=== PATIENT | female | born 1950 | race Caucasian/White ===

== ENCOUNTER 2017-02-11 21:04 | Emergency (ER) | payer BC ==
[2017-02-11] MEDS ORDERED: metroNIDAZOLE 250 MG TAB ONE (21:47)
== END 2017-02-11 22:10 | disposition home or self-care (01) ==
LOC: BURERS 21:04
DX: K57.92 Diverticulitis of intestine, part unspecified, without perforation or abscess without bleeding (principal); F17.210 Nicotine dependence, cigarettes, uncomplicated; Z86.73 Personal history of transient ischemic attack (TIA), and cerebral infarction without residual deficits
CPT/HCPCS: 99283

== ENCOUNTER 2017-03-29 16:32 | Outpatient (CLI) | payer BC ==
[2017-03-29 16:43] LABS: #Basophils 0.1 thou/uL (0.0-0.2); #Eosinphils 0.1 thou/uL (0.0-0.7); #Lymphocytes 3.2 thou/uL (1.20-3.40); #Monocytes 0.5 thou/uL (0.11-0.59); #Neutrophils 3.9 thou/uL (1.40-6.50); %Basophils 1.6 % (0.0-1.0); %Eosinophils 1.4 % (0.0-10.0); %Monocytes 6.3 % (0.0-10.0); %Neutrophils 49.7 % (42.0-75.0); Hemoglobin 15.7 g/dL (12.0-16.0); Mean Corpuscular HGB CONC 32.2 g/dL (32.0-36.0); Mean Corpuscular Hemoglobin 29.4 pg (27.0-31.0); Mean Corpuscular Volume 91.4 fl (81.0-99.0); Mean Platelet Volume 5.5 fL (7.4-10.4); Platelet Count 303 thou/uL (130-400); RBC Distribution Width 13.5 % (11.5-14.5); Red Blood Cell (RBC) Count 5.33 mill/uL (4.20-5.40); White Blood Cell (WBC) Count 7.9 thou/uL (4.8-10.8)
[2017-03-29 17:46] LABS: ALT (SGPT) 14 U/L (8-55); AST (SGOT) 16 U/L (5-34); Albumin 4.3 g/dL (3.4-4.8); Alkaline Phosphatase 100 U/L (40-150); Anion Gap 15 mmol/L (10-20); BUN (Urea Nitrogen) 10 mg/dL (9.8-20.1); Bilirubin, Total 0.5 mg/dL (0.2-1.2); Calc. Creatinine Clearance 0 mL/min (70-130); Calcium 10.1 mg/dL (7.8-10.44); Carbon Dioxide 26 mmol/L (23-31); Chloride 105 mmol/L (98-107); Cholesterol 225 mg/dl (< 200 Desired); Estimated GFR-MDRD 83; Globulin 2.7 g/dL (2.4-3.5); Glucose 99 mg/dL (80-115); HDL Cholesterol 45 mg/dL (>60 Neg Risk); LDL Cholesterol, Calculated 156 mg/dL; Potassium 5.4 mmol/L (3.5-5.1); Sodium 141 mmol/L (136-145); Triglycerides 122 mg/dL (Less than 150)
== END 2017-03-29 16:33 | disposition home or self-care (01) ==
LOC: HPCALD 16:32
PROVIDERS: ATTEND Family Medicine
DX: I49.9 Cardiac arrhythmia, unspecified (principal); E78.5 Hyperlipidemia, unspecified
CPT/HCPCS: 80053; 80061; 84443; 85025

== ENCOUNTER 2017-10-27 08:30 | Outpatient (CLI) | payer BC ==
--- NOTE | 2017-10-27 15:53 | CT ---
CT LUMBAR SPINE 10/27/[address] of the lumbar spine was performed. Axial slices were acquired then coronal and sagittal rec onstructions were done. No fracture, dislocation, or acute bony change was seen. No disc herniations were noted. There is no sign of central canal or foraminal stenosis. No cause for the patient's sciatica was appreciated. The re are the beginnings of some mild degenerative change in the facet joints at L5-S1, but they are not substantial. There are several incidental findings on this study that are correlated with an old CT abdomen and pe lvis dated 03/05/15. There is a large parapelvic cyst in the left kidney measuring about 6.5 cm in size . This has not changed. Some scattered cysts are seen in the visible portions of the liver, not a new finding. A finding better seen on today's study is a 2.8 cm low density left adrenal mass. The CT nu mbers are mildly negative, around -2 units, very consistent with an adenoma. It has not changed over time. Small amounts of calcification are seen in the aorta but they are relatively minor. A periphera l cortical in the right kidney is most likely a cyst and measures 1.1 cm in size. It has not changed over the interval. IMPRESSION: 1. No acute lumbar findings to explain the patient's pain. Minimal facet degenerative change at L5-S1 which is not very impressive. 2. Parapelvic cysts in the left kidney, one of which is quite large but unchanged from 2015. Pro bable peripheral cysts in the right kidney which is not changed either. There is no sign of renal obs truction. 3. Hepatic cysts, longstanding. 4. 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 POS: HOME
--- NOTE | 2017-10-27 16:13 | CT ---
CT OF THE NECK SOFT TISSUES WITH CONTRAST: DATE: 10/27/17. FINDINGS: Spiral CT of the neck was done for evaluation of a palpable right neck mass. The patient reports she noticed it 1 year ago and it changes in size at times. Axial slices were acquired after giving IV c ontrast. Coronal and sagittal reconstructions were done afterwards. There is a cystic mass that appears to be in the parotid gland with peripheral enhancement. It measu res 1.5 cm wide. It correlates with the palpable abnormality. Looking back at a 2015 CT of the cerv ical spine scan which was done without contrast, this area blended in with the sternocleidomastoid an d was isodense to it, so not able to be performed as separate from it. I believe it was probably pre sent then and measured about 1 cm in size. 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 These are common in the parotid glands and in this age group and often have peripheral enhancement such as this. A lack of dramatic growth over time also mitigates towards a benign process such as t his. Other lymphoepithelial cysts are possible. It would probably be prudent to duo an ENT referral to determine if anything further need be done. Chronic sinusitis is present involving the ethmoid sinuses bilaterally and prominently the left maxil tia sinus. There may be a trace of mucosal thickening in the right maxillary sinus. Some nonspecif ic cervical adenopathy is seen bilaterally, no more so on one side than the other. Incidentally seen on the study were extensive degenerative changes of the cervical spine. IMPRESSION: 1. Palpable abnormality that correlates with a 1.5 cm cystic parotid mass with peripheral enhancemen t. 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 ENT referral is recomme nded. 2. Sinusitis, predominantly involving the ethmoid and left maxillary sinuses. 3. Other minor findings listed above. POS: HOME
== END 2017-10-27 08:31 | disposition home or self-care (01) ==
LOC: BURCT 08:30
PROVIDERS: ATTEND Family Medicine
DX: Z01.812 Encounter for preprocedural laboratory examination (principal); R22.1 Localized swelling, mass and lump, neck; M54.31 Sciatica, right side; J32.2 Chronic ethmoidal sinusitis; J32.0 Chronic maxillary sinusitis; M47.897 Other spondylosis, lumbosacral region; N28.1 Cyst of kidney, acquired; K76.89 Other specified diseases of liver; E27.9 Disorder of adrenal gland, unspecified
CPT/HCPCS: 36415; 70491; 72131; 82565

== ENCOUNTER 2022-07-07 14:41 | Emergency (ER) | payer BC ==
[~2022-07-07 14:41] MED LIST: Iopamidol 370 76% 100 ML VIAL ONE; Ketorolac Tromethamine 30 MG/ML VIAL ONE
[2022-07-07 15:06] LABS: #Basophils 0.1 thou/uL (0.0-0.2); #Eosinphils 0.2 thou/uL (0.0-0.7); #Lymphocytes 2.9 thou/uL (1.20-3.40); #Monocytes 0.5 thou/uL (0.11-0.59); #Neutrophils 3.8 thou/uL (1.40-6.50); %Basophils 1.5 % (0.0-1.0); %Eosinophils 2.4 % (0.0-10.0); %Lymphocytes 38.2 % (21.0-51.0); %Neutrophils 50.9 % (42.0-75.0); Hemoglobin 15.6 g/dL (12.0-16.0); Mean Corpuscular HGB CONC 32.8 g/dL (32.0-36.0); Mean Corpuscular Hemoglobin 29.7 pg (27.0-31.0); Mean Corpuscular Volume 90.6 fl (78.0-98.0); Mean Platelet Volume 6.1 fL (7.4-10.4); Platelet Count 350 10x3/uL (130-400); RBC Distribution Width 13.8 % (11.5-14.5); Red Blood Cell (RBC) Count 5.26 mill/uL (4.20-5.40); White Blood Cell (WBC) Count 7.5 10x3/uL (4.8-10.8)
[2022-07-07 15:24] LABS: ALT (SGPT) 10 U/L (8-55); AST (SGOT) 14 U/L (5-34); Albumin 4.2 g/dL (3.4-4.8); Alkaline Phosphatase 107 U/L (40-110); Anion Gap 14 mmol/L (10-20); BUN (Urea Nitrogen) 16 mg/dL (9.8-20.1); Bilirubin, Total 0.3 mg/dL (0.2-1.2); Calc. Creatinine Clearance 0 mL/min (70-130); Calcium 10.2 mg/dL (7.8-10.44); Carbon Dioxide 27 mmol/L (23-31); Chloride 105 mmol/L (98-107); Estimated GFR 56; Globulin 3.2 g/dL (2.4-3.5); Glucose 119 mg/dL (80-115); Lipase 45 U/L (8-78); Magnesium 1.8 mg/dL (1.6-2.6); Potassium 3.8 mmol/L (3.5-5.1); Protein, Total 7.4 g/dL (5.8-8.1); Sodium 142 mmol/L (136-145)
[2022-07-07] MEDS ORDERED: HYDROmorphone 0.5 MG/0.5 ML SYRINGE ONE (15:44)
== END 2022-07-07 17:53 | disposition home or self-care (01) ==
LOC: BURERS 14:41
DX: K43.9 Ventral hernia without obstruction or gangrene (principal); F17.210 Nicotine dependence, cigarettes, uncomplicated
CPT/HCPCS: 74177; 80053; 83605; 83690; 83735; 85025; 96374; 96375; J1170; J1885; Q9967

== ENCOUNTER 2022-10-31 17:57 | Emergency (ER) | payer BC ==
[2022-10-31] MEDS ORDERED: diphenhydrAMINE 25 MG CAP ONE (18:20)
[2022-10-31] MEDS ORDERED: Dexamethasone 10 MG/ML VIAL ONE (18:20)
== END 2022-10-31 18:38 | disposition home or self-care (01) ==
LOC: BURERS 17:57
DX: L50.9 Urticaria, unspecified (principal); T63.391A Toxic effect of venom of other spider, accidental (unintentional), initial encounter; F17.210 Nicotine dependence, cigarettes, uncomplicated
CPT/HCPCS: 99282; J1100

== ENCOUNTER 2023-04-16 19:30 | Emergency (ER) | payer BC ==
[2023-04-16 20:16] LABS: #Basophils 0.1 thou/uL (0.0-0.2); #Eosinphils 0.1 thou/uL (0.0-0.7); #Lymphocytes 1.8 thou/uL (1.20-3.40); #Monocytes 0.8 thou/uL (0.11-0.59); #Neutrophils 7.9 thou/uL (1.40-6.50); %Basophils 1.1 % (0.0-1.0); %Eosinophils 1.1 % (0.0-10.0); %Lymphocytes 16.9 % (21.0-51.0); %Neutrophils 73.8 % (42.0-75.0); Hemoglobin 14.7 g/dL (12.0-16.0); Mean Corpuscular HGB CONC 32.8 g/dL (32.0-36.0); Mean Corpuscular Hemoglobin 29.4 pg (27.0-31.0); Mean Corpuscular Volume 89.6 fl (78.0-98.0); Mean Platelet Volume 5.9 fL (7.4-10.4); Platelet Count 396 10x3/uL (130-400); RBC Distribution Width 12.8 % (11.5-14.5); Red Blood Cell (RBC) Count 5.02 mill/uL (4.20-5.40); White Blood Cell (WBC) Count 10.6 10x3/uL (4.8-10.8)
[2023-04-16 20:20] LABS: ALT (SGPT) 11 U/L (8-55); AST (SGOT) 14 U/L (5-34); Alkaline Phosphatase 125 U/L (40-110); Anion Gap 17 mmol/L (10-20); BUN (Urea Nitrogen) 16 mg/dL (9.8-20.1); Bilirubin, Total 0.3 mg/dL (0.2-1.2); Calc. Creatinine Clearance 0 mL/min (70-130); Calcium 9.3 mg/dL (7.8-10.44); Carbon Dioxide 25 mmol/L (23-31); Chloride 101 mmol/L (98-107); Estimated GFR 68; Glucose 163 mg/dL (80-115); Sodium 139 mmol/L (136-145)
== END 2023-04-16 23:56 | disposition short-term general hospital (02) ==
LOC: BURERS 19:30
DX: R07.89 Other chest pain (principal); R55 Syncope and collapse; F17.210 Nicotine dependence, cigarettes, uncomplicated
CPT/HCPCS: 71045; 80053; 83880; 84484; 85025; 93005; 94760

== ENCOUNTER 2023-08-16 16:07 | Emergency (ER) | payer BC ==
[~2023-08-16 16:07] MED LIST changes: -Ketorolac Tromethamine 30 MG/ML VIAL ONE
[2023-08-16 17:37] LABS: INR-International Normal Ratio 0.9; Prothrombin Time 12.2 sec (12.0-14.7)
[2023-08-16 17:40] LABS: #Basophils 0.1 thou/uL (0.0-0.2); #Eosinphils 0.1 thou/uL (0.0-0.7); #Lymphocytes 2.8 thou/uL (1.20-3.40); #Monocytes 0.5 thou/uL (0.11-0.59); #Neutrophils 4.8 thou/uL (1.40-6.50); %Basophils 1.2 % (0.0-1.0); %Eosinophils 1.5 % (0.0-10.0); %Lymphocytes 33.4 % (21.0-51.0); %Monocytes 6.1 % (0.0-10.0); %Neutrophils 57.8 % (42.0-75.0); ALT (SGPT) 13 U/L (8-55); AST (SGOT) 13 U/L (5-34); Albumin 4.1 g/dL (3.4-4.8); Alkaline Phosphatase 106 U/L (40-110); Anion Gap 16 mmol/L (10-20); BUN (Urea Nitrogen) 17 mg/dL (9.8-20.1); Bilirubin, Total 0.3 mg/dL (0.2-1.2); Calc. Creatinine Clearance 0 mL/min (70-130); Calcium 10.1 mg/dL (7.8-10.44); Carbon Dioxide 25 mmol/L (23-31); Chloride 105 mmol/L (98-107); Estimated GFR 67; Globulin 3.2 g/dL (2.4-3.5); Glucose 135 mg/dL (80-115); Hemoglobin 14.4 g/dL (12.0-16.0); Mean Corpuscular HGB CONC 32.8 g/dL (32.0-36.0); Mean Corpuscular Hemoglobin 29.2 pg (27.0-31.0); Platelet Count 328 10x3/uL (130-400); Potassium 4.5 mmol/L (3.5-5.1); Protein, Total 7.3 g/dL (5.8-8.1); RBC Distribution Width 13.4 % (11.5-14.5); Red Blood Cell (RBC) Count 4.94 mill/uL (4.20-5.40); Sodium 141 mmol/L (136-145); White Blood Cell (WBC) Count 8.3 10x3/uL (4.8-10.8)
[2023-08-16 17:43] LABS: MDiff Complete? YES
== END 2023-08-16 19:00 | disposition home or self-care (01) ==
LOC: BURERS 16:07
DX: S30.0XXA Contusion of lower back and pelvis, initial encounter (principal); S70.01XA Contusion of right hip, initial encounter; F17.210 Nicotine dependence, cigarettes, uncomplicated; W01.119A Fall on same level from slipping, tripping and stumbling with subsequent striking against unspecified sharp object, initial encounter
CPT/HCPCS: 70450; 74177; 80053; 85025; 85610; Q9967